=== PATIENT | female | born 1960 | race Caucasian/White ===

== ENCOUNTER 2019-08-31 10:28 | Day surgery (SDC) | payer OTHER ==
[~2019-08-31] VITALS: Ht 170.2 cm; Wt 115.7 kg
--- NOTE | ~2019-08-31 | O ---
[address] [address] OPERATIVE REPORT Name: ERIC WALKER Room #: 150-10 [facility]..#: [id number] Admission: 08/31/19 Attend Phys: Catia Seaman, Discharge: Date of : 58 Report #: [id number] THIS REPORT FOR: cc: LIZZETTE FISH Physician not on staff Catia Seaman MD ~ THIS REPORT FOR: //name// CC: Physician staff LIZZETTE Seaman DATE OF SERVICE: 08/31/2019 PREOPERATIVE DIAGNOSES: 1. Right subacute distal radius fracture dislocation. 2. Status post open reduction and internal fixation, right distal radius fracture with retained plate and screws. 3. Status post external fixator application, right wrist with retained external fixator. POSTOPERATIVE DIAGNOSES: 1. Right subacute distal radius fracture dislocation. 2. Status post open reduction and internal fixation, right distal radius fracture with retained plate and screws. 3. Status post external fixator application, right wrist with retained external fixator. PROCEDURE PERFORMED: 1. Right radiocarpal joint fusion. 2. Right removal deep plate and screws radius. 3. Right removal of external fixator. SURGEON: Catia Seaman MD ANESTHESIA: General mask anesthesia. ESTIMATED BLOOD LOSS: Minimal. TOURNIQUET TIME: 120 minutes. COMPLICATIONS: None. CONDITION: Stable. DISPOSITION: Recovery room. [address] [address] OPERATIVE REPORT Name: ERIC WALKER Room #: 150-10 [facility]#: [id number] Admission: 08/31/19 Attend Phys: Catia Seaman, Discharge: Date of : 58 Report #: [id number] INDICATIONS: The patient is a 59-year-old female with the above-mentioned diagnosis. She elects for operative treatment. The risks, benefits, alternatives and complications were discussed including but not limited to infection, damage to vessels or nerves, nonunion mind, hardware failure, hardware rotation and stiffness. We again discussed that she will have no wrist flexion, extension or radial and ulnar deviation, but she will have forearm rotation. The other risks discussed were infection, damage to vessels or nerves, wound healing problems, hardware failure, worsening of any pain. Informed consent was obtained. Her was present at her bedside. Informed consent was obtained. The correct extremity was identified and labeled by myself after verbal confirmation of the patient as well as visual confirmation and signed informed consent. DESCRIPTION OF PROCEDURE: The patient was brought back to the operating room and placed on the operating table in supine position. She received preoperative antibiotics. Tourniquet was placed on the patient's right upper extremity. Right upper extremity was sterilely prepped and draped in the usual fashion. Final timeout was taken to verify correct patient, operative procedure, operative site, all concurred. The arm was elevated, exsanguinated and tourniquet inflated. Next, prior to prepping the patient, the external fixator was removed except the wire. The pins were not removed in order to potentially use for distraction during the procedure. The arm was elevated, exsanguinated and the tourniquet inflated. Next, a volar approach was done to the distal radius utilizing the same prior surgical incision. Dissection was carried down to the subcutaneous tissue with tenotomy scissors. This was carried down all the way to the plate. Plate was removed without significant difficulty. There was some difficulty finding the correct size screwdriver. This did not lead to any significant delay. The plate was removed without difficulty. Fluoroscopy was brought in, which showed absence of the hardware. The wound was thoroughly irrigated. A small stitch was placed into the skin provisionally. Next, dorsal approach was done of the distal radius measuring approximately 12 cm third over Sher's tubercle and the long finger metacarpal. Dissection was carried down through subcutaneous tissue with tenotomy scissors. Full thickness flaps were created. The circumflex was identified and incised. The fourth compartment was incised in a step-cut fashion. A posterior interosseous nerve was identified and 1 cm was excised. A T-type capsulotomy was performed. Next, the proximal carpus was evaluated. It was completely volarly displaced. It was excised thoroughly and any bone fragments were excised. The triquetrum was excised as well. The radius cartilage looked to be in fairly poor condition especially volarly and at the lunate facet. Next, the cartilage of the distal radius and proximal capitate and hamate cartilage were taken down to nice cancellous bone. The long CMC joint was also taken down to cancellous bone. Fluoroscopy was used multiple times in order to assess the appropriate bony excision. The area was then thoroughly irrigated. The capitate was going to sit nicely into the lunate fossa. So then the Synthes wrist fusion plate was applied to the bone. It was [facility] [address] [place] [address] OPERATIVE REPORT Name: ERIC WALKER Room #: 759-10 [facility]#: [id number] Admission: 08/31/19 Attend Phys: Catia Hastings Jurgen, Discharge: Date of : 58 Report #: [id number] checked under fluoroscopy in both AP and lateral planes and found to be in appropriate position. It was then applied to the bone using the 3 distal screws. The first one was a cortical screw, the second and third screws were locking screws. These were checked under fluoroscopy in both AP and lateral planes and found to be in good position. The screws were found to be the appropriate length. Next, a proximal gliding hole cortical screw was utilized. Prior to placing the plates, some autograft bone from the carpal bones, specifically the triquetrum, the best bone was placed into the fusion site as well as cancellous chips. The wrist was then placed in the compression and the cortical hole tightened proximally. Next, AP and lateral views showed good position of the fusion site and hardware. The remaining holes were drilled, measured and the appropriate size screws were placed. This was felt to be very stable construct. There was no significant ulnar-sided impingement. The capsule was closed with 4-0 Vicryl suture. The wound was thoroughly irrigated again. The skin was then closed with 4-0 nylon suture. The tourniquet had to be deflated prior to closing the wound due to the amount of time the tourniquet was inflated. The volar wound was thoroughly irrigated. The skin was closed with 4-0 nylon suture. The external fixator pins had previously been removed and were curetted and thoroughly irrigated. They were dressed with Xeroform and sterile gauze. She was placed in a bulky dressing and a volar dorsal slab splint. All fingers were pink with brisk capillary refill at the conclusion of case after deflation of tourniquet. All sponge and needle counts were correct. The patient was transferred to postoperative recovery room in stable condition. By: [id number] Catia Seaman MD /nt
[~2019-08-31 10:28] MED LIST: ALL DAY ALLERGY10 M3 PO; ESCITALOPRAM OX20 MG PO; INDERAL 20 MG T20 M1 PO; LOPERAMIDE 2 MG2 M1 PO; NORCO 10-325 T1 EACH PO; OMEPRAZOLE 20 M20 M1 PO; ONDANSETRON HCL4 M2 PO
[2019-08-31 12:40] VITALS: BP 152/93
[2019-08-31 16:20] VITALS: BP 152/93
[2019-08-31 19:40] VITALS: BP 118/79
[2019-08-31 20:40] VITALS: BP 133/70
[2019-08-31 21:40] VITALS: BP 133/73
[2019-09-01 00:26] VITALS: BP 123/62
[2019-09-01 04:00] VITALS: BP 114/57
--- NOTE | 2019-09-01 05:19 | NUR ---
ASSUMED PT CARE AT 2200. PT IS OBSERVATION DUE TO BEING SEVERELY DROWSY FOLLOWING SURGERY. PT STILL SLIGHTLY SEDATED, ARROUSABLE FOR A MINUTE THEN RIGHT BACK TO SLEEP. REPORTS NO PAIN. ICE PACKS ON BOTH ARMS. AT PTS BEDSIDE, HOPING TO GO HOME LATER TODAY.
[2019-09-01 07:40] VITALS: BP 123/55
--- NOTE | 2019-09-01 10:41 | NUR ---
NOTE FOR 08/31/19 PT CARE ASSUMED AT 1730. A&Ox4. PT IS OBSERVATION STATUS WITH A POST OP PLATE PLACEMENT WITH 10 SCREWS OF THE RIGHT WRIST. PT VITALS ARE STABLE. PT HAS GOTTEN UP WITH A WALKER TO THE BATHROOM. AT BED SITE. IV IS PATENT WITH NO REDNESS OR EDEMA. CALL LIGHT IN REACH.
--- NOTE | 2019-09-01 10:43 | NUR ---
PT CARE ASSUMED AT 0700. A&Ox4. AT BED SITE. PT IN OBSERVATION STATUS. IV REMOVED AND DISCHARGED. SCRIPT HANDED TO .
== END 2019-09-01 10:48 | disposition home or self-care (01) ==
LOC: OR 10:28 → TBA 10:29 → OR 12:28 → 4S 18:39 → ENTRNSPT 09-01 10:47 → OR 09-01 10:48
DX: S52.501D Unspecified fracture of the lower end of right radius, subsequent encounter for closed fracture with routine healing (principal); I10 Essential (primary) hypertension; K21.9 Gastro-esophageal reflux disease without esophagitis; F32.9 Major depressive disorder, single episode, unspecified; Z98.890 Other specified postprocedural states; Z79.899 Other long term (current) drug therapy; Z85.048 Personal history of other malignant neoplasm of rectum, rectosigmoid junction, and anus; Z90.710 Acquired absence of both cervix and uterus; Z90.49 Acquired absence of other specified parts of digestive tract; Z96.651 Presence of right artificial knee joint; Z87.891 Personal history of nicotine dependence; X58.XXXD Exposure to other specified factors, subsequent encounter
CPT/HCPCS: 10102; 50010; 50101; 50386; 51008; 53342; 53347; 55430; 56524; 56526; 57006; 57091; 57179; 62110; 62900; 64039; 64043; 70005